=== PATIENT | male | born 1990 | race Asian ===

== ENCOUNTER 2016-07-10 03:09 | Emergency (ER) | payer OTHER ==
[~2016-07-10] VITALS: Ht 177.8 cm; Wt 65.8 kg
--- NOTE | 2016-07-10 03:22 | NUR ---
Patient walked in to ER c/o pain to his genitals s/p fall. He states he was in the shower and stood up quickly and lost his balance. He states that he was able to catch himself from completely falling but that he did strike the bathtub in a straddling position. To room [facility] at bedside for MSE.
--- NOTE | 2016-07-10 03:47 | NUR ---
Call placed to UROLOGY for consult, Dr. Garrido is on-call for Dr. Cardenas and was paged.
--- NOTE | 2016-07-10 03:55 | NUR ---
Per [employer], contact Urologist that has privelidges. Mau Mathis contacted and spoke with DILAN.
[2016-07-10 04:16] LABS: BASOPHILS # (AUTO) 0.1 K/uL (0.0-8.0); BASOPHILS % (AUTO) 0.5 % (0.0-2.0); EOSINOPHILS % (AUTO) 0.2 % (0.0-7.0); HEMATOCRIT 41.3 % (36.7-47.1); HEMOGLOBIN 14.3 g/dL (12.5-16.3); LYMPHOCYTES # (AUTO) 1.5 K/uL (40.0-85.0); LYMPHOCYTES % (AUTO) 12.4 % (20.5-51.5); MEAN CORPUSCULAR HEMOGLOBIN 31.7 uug (23.8-33.4); MEAN CORPUSCULAR HGB CONC 35 g/dL (32.5-36.3); MEAN CORPUSCULAR VOLUME 91.7 fL (73.0-96.2); MONOCYTES # (AUTO) 0.7 K/uL (2.0-10.0); MONOCYTES % (AUTO) 5.7 % (0.0-11.0); NEUTROPHILS # (AUTO) 9.4 K/uL (1.8-8.9); NEUTROPHILS % (AUTO) 81.2 % (38.5-71.5); PLATELET COUNT (AUTO) 246 K/uL (152-348); RED BLOOD CELL COUNT(AUTO) 4.51 MIL/uL (4.06-5.63); RED CELL DISTRIBUTION WIDTH 11.4 % (12.1-16.2); WHITE BLOOD COUNT (AUTO) 11.7 K/uL (3.6-10.2)
[2016-07-10 04:20] LABS: CALCIUM 8.9 mg/dL (8.5-10.1); CREATININE 0.8 mg/dL (0.6-1.3); POTASSIUM 3.8 mmol/L (3.5-5.1)
[2016-07-10] MEDS ORDERED: DIATRIZOATE MEGLUMINE 300 ML INFUS..BTL ONE (04:49)
[2016-07-10] MEDS ORDERED: IOHEXOL 300MG/ML 100 ML INFUS..BTL ONE ×2 (04:49→08:01)
--- NOTE | 2016-07-10 06:10 | NUR ---
DILAN spoke to UROLOGIST (Salma Mathis) who stated that he would place a catheter, unknown ETA.
--- NOTE | 2016-07-10 06:45 | NUR ---
Dr. Cardenas at bedside.
[2016-07-10] MEDS ORDERED: LIDOCAINE HCL 1% 20 ML VIAL TP ONE (07:00)
--- NOTE | 2016-07-10 07:05 | NUR ---
Ethel chatman in ED - 07/10/[address] raimundo horn at [facility] to evaluate the pt.
--- NOTE | 2016-07-10 07:51 | NUR ---
dr. horn finished placement of suprapubic cath . pt toleratd well
[2016-07-10] MEDS ORDERED: IV NORMAL SALINE 250 ML IV ONE (08:01)
--- NOTE | 2016-07-10 08:37 | NUR ---
emtied the cath bag, 600 ml out put Addendum: 07/10/16 at 0959 by VANIA dark yellow color.
[2016-07-10] MEDS ORDERED: IBUPROFEN 600 MG TABLET PO ONE (09:30)
--- NOTE | 2016-07-10 09:33 | NUR ---
leg bag placed for the pt per md order. Patient discharged to home in stable conditon. Written and verbal after care instructions given. Patient verbalizes understanding of instructions.dr. raimundo horn also gave d/c instruction on the care of the cath and follow up to the pt. extra leg bag provided for pt to take home.pt will use the lyft to go home.
[2016-07-10] MEDS ORDERED: IBUPROFEN 600 MG TABLET ONE (09:41)
[2016-07-10 09:58] VITALS: BP 109/63
--- NOTE | 2016-07-10 09:59 | NUR ---
no active bleed from penis at this point.
== END 2016-07-10 10:00 | disposition home or self-care (01) ==
LOC: ER 03:09
DX: S37.33XA Laceration of urethra, initial encounter (principal); N13.9 Obstructive and reflux uropathy, unspecified; W01.0XXA Fall on same level from slipping, tripping and stumbling without subsequent striking against object, initial encounter; Y93.89 Activity, other specified; Y92.89 Other specified places as the place of occurrence of the external cause; Y99.8 Other external cause status
CPT/HCPCS: 36415; 85025; 85730; A4663; C1758; J3490; J7050; Q9958; Q9967